=== PATIENT | female | born 1985 | race Asian ===

== ENCOUNTER 2019-01-30 10:49 | Emergency (ER) | payer OTHER, MEDICAID ==
[2019-01-30] MEDS: SODIUM CHLORIDE 0.9% 1L BAG IV* (11:36)
[2019-01-30 11:39] LABS: ADD MAN DIFF? NO
[2019-01-30 11:42] LABS: ABNORMAL IP MESSAGE 1; BASOPHILS % 0.3 % (0.0-2.0); EOSINOPHILS % 0.3 % (0.0-7.0); HEMATOCRIT 35.3 % (37.0-47.0); LYMPHOCYTES # 0.3 10^3/ul (0.8-2.9); LYMPHOCYTES % 5.2 % (15.0-51.0); MEAN CORPUSCULAR HEMOGLOBIN 30.8 pg (29.0-33.0); MEAN CORPUSCULAR VOLUME 90.7 fl (82.0-101.0); MEAN PLATELET VOLUME 9.7 fl (7.4-10.4); MONOCYTES % 0.7 % (0.0-11.0); NEUTROPHIL # 5.6 10^3/ul (1.6-7.5); NEUTROPHILS % 93.3 % (39.0-77.0); PLATELET COUNT 223 10^3/UL (140-415); RED BLOOD COUNT 3.89 10^6/ul (4.20-5.40); RED CELL DISTRIBUTION WIDTH 12.5 % (11.5-14.5)
[2019-01-30 11:44] LABS: POSITIVE DIFF @See below
[2019-01-30 11:58] LABS: INR 1.02; PROTIME 13.5 Sec (11.9-14.9); PT RATIO 1.1
[2019-01-30 11:59] LABS: LACTIC ACID 1.5 mmol/L (0.5-2.0)
[2019-01-30 11:59] LABS: ALANINE AMINOTRANSFERASE 112 IU/L (13-69); ALBUMIN 4.2 g/dl (3.3-4.9); ALKALINE PHOSPHATASE 53 IU/L (42-121); ANION GAP 9 (5-13); ASPARTATE AMINO TRANSFERASE 124 IU/L (15-46); BILIRUBIN,INDIRECT 0.6 mg/dl (0-1.1); BILIRUBIN,TOTAL 0.6 mg/dl (0.2-1.3); BLOOD UREA NITROGEN 14 mg/dl (7-20); CALCIUM 9.3 mg/dl (8.4-10.2); CARBON DIOXIDE 26 mmol/L (21-31); CHLORIDE 104 mmol/L (97-110); CREATININE 0.62 mg/dl (0.44-1.00); Estimated GFR > 60 mL/min (>60); GLUCOSE 108 mg/dl (70-220); PARTIAL THROMBOPLASTIN TIME 30.3 Sec (23.0-35.0); SODIUM 139 mmol/L (135-144); TOTAL PROTEIN 7.2 g/dl (6.1-8.1)
[2019-01-30] MEDS ORDERED: morphine 4 MG/ML VIAL IV (12:09)
[2019-01-30 12:11] LABS: TROPONIN-I < 0.012 ng/ml (0.000-0.120)
[2019-01-30 12:26] LABS: ADD UMIC YES; UR ASCORBIC ACID NEGATIVE (NEGATIVE); UR BACTERIA FEW /HPF (NONE SEEN); UR BILIRUBIN (Dip) NEGATIVE (NEGATIVE); UR BLOOD (Dip) 2+ mg/dL (NEGATIVE); UR CLARITY CLEAR (CLEAR); UR COLOR YELLOW (YELLOW); UR GLUCOSE (Dip) NEGATIVE (NEGATIVE); UR KETONES (Dip) NEGATIVE (NEGATIVE); UR LEUKOCYTE ESTERASE (Dip) NEGATIVE Leu/ul (NEGATIVE); UR MUCUS FEW /HPF (NONE SEEN); UR NITRITE (Dip) POSITIVE (NEGATIVE); UR RBC 1 /HPF (0-5); UR SPECIFIC GRAVITY (Dip) 1.013 (1.003-1.030); UR TOTAL PROTEIN (Dip) NEGATIVE (NEGATIVE); UR UROBILINOGEN (Dip) NEGATIVE (NEGATIVE); UR WBC 15 /HPF (0-5)
[2019-01-30] MEDS: KETOROLAC 30 MG INJ IV (12:27)
[2019-01-30] MEDS: ACETAMINOPHEN 500 MG TAB PO (13:06)
[2019-01-30] MEDS: CEFTRIAXONE 1 GM/50 ML (PMX) 50 ML IVPB (13:29)
== END 2019-01-30 14:18 | disposition home or self-care (01) ==
LOC: FTE 10:49
DX: N39.0 Urinary tract infection, site not specified (principal)
CPT/HCPCS: 36415; 80053; 81001; 81025; 83605; 84484; 85025; 85610; 85730; 87040-91; 87086; 93005; 96365; 96366; 96375; 99284-25

== ENCOUNTER 2019-02-04 10:06 | Emergency (ER) | payer OTHER | END 2019-02-04 10:59 | disposition home or self-care (01) | LOC: FTE 10:06 | DX: R78.81 Bacteremia (principal) | CPT/HCPCS: 99283; Z7502 ==